=== PATIENT | female | born 1935 | race Hispanic/Latino ===

== ENCOUNTER → 2023-03-07 | Outpatient (CLI) | payer MEDICARE ==
[~2023-03-07] MED LIST: LIDOCAINE HCL 4% LTA SOL 4 ML VIAL ONE
== END | disposition home or self-care (01) ==
LOC: WHH 09:08
PROVIDERS: ATTEND Nurse Practitioner Family
DX: L97.312 Non-pressure chronic ulcer of right ankle with fat layer exposed (principal); S91.001A Unspecified open wound, right ankle, initial encounter; I87.2 Venous insufficiency (chronic) (peripheral); E78.2 Mixed hyperlipidemia; N18.9 Chronic kidney disease, unspecified; M81.0 Age-related osteoporosis without current pathological fracture; Z79.82 Long term (current) use of aspirin; Z79.899 Other long term (current) drug therapy; X58.XXXA Exposure to other specified factors, initial encounter; Y93.89 Activity, other specified; Y92.89 Other specified places as the place of occurrence of the external cause; Y99.8 Other external cause status
CPT/HCPCS: 11042; A4450

== ENCOUNTER → 2023-03-14 | Outpatient (CLI) | payer MEDICARE | END | disposition home or self-care (01) | LOC: WHH 09:48 | PROVIDERS: ATTEND Nurse Practitioner Family | DX: L97.312 Non-pressure chronic ulcer of right ankle with fat layer exposed (principal); S91.001D Unspecified open wound, right ankle, subsequent encounter; I87.2 Venous insufficiency (chronic) (peripheral); N18.2 Chronic kidney disease, stage 2 (mild); E78.2 Mixed hyperlipidemia; M81.0 Age-related osteoporosis without current pathological fracture; Z79.82 Long term (current) use of aspirin; Z79.899 Other long term (current) drug therapy; X58.XXXD Exposure to other specified factors, subsequent encounter | CPT/HCPCS: 11042; A6021 ==

== ENCOUNTER → 2023-04-04 | Outpatient (CLI) | payer MEDICARE | END | disposition home or self-care (01) | LOC: WHH 08:57 | PROVIDERS: ATTEND Nurse Practitioner Family | DX: L97.312 Non-pressure chronic ulcer of right ankle with fat layer exposed (principal); S91.001D Unspecified open wound, right ankle, subsequent encounter; I87.2 Venous insufficiency (chronic) (peripheral); E78.2 Mixed hyperlipidemia; N18.2 Chronic kidney disease, stage 2 (mild); M81.0 Age-related osteoporosis without current pathological fracture; Z79.82 Long term (current) use of aspirin; Z79.899 Other long term (current) drug therapy; X58.XXXD Exposure to other specified factors, subsequent encounter | CPT/HCPCS: G0463; A6021; A4450 ==

== ENCOUNTER → 2023-04-11 | Outpatient (CLI) | payer MEDICARE | END | disposition home or self-care (01) | LOC: WHH 09:00 | PROVIDERS: ATTEND Nurse Practitioner Family | DX: L97.312 Non-pressure chronic ulcer of right ankle with fat layer exposed (principal); S91.001D Unspecified open wound, right ankle, subsequent encounter; I87.2 Venous insufficiency (chronic) (peripheral); E78.2 Mixed hyperlipidemia; N18.2 Chronic kidney disease, stage 2 (mild); M81.0 Age-related osteoporosis without current pathological fracture; Z79.82 Long term (current) use of aspirin; Z79.899 Other long term (current) drug therapy; X58.XXXD Exposure to other specified factors, subsequent encounter | CPT/HCPCS: 11042; A6021 ==

== ENCOUNTER → 2023-04-20 | Outpatient (CLI) | payer MEDICARE | END | disposition home or self-care (01) | LOC: WHH 09:11 | PROVIDERS: ATTEND Nurse Practitioner Family | DX: L97.312 Non-pressure chronic ulcer of right ankle with fat layer exposed (principal); S91.001D Unspecified open wound, right ankle, subsequent encounter; I87.2 Venous insufficiency (chronic) (peripheral); E78.2 Mixed hyperlipidemia; N18.2 Chronic kidney disease, stage 2 (mild); M81.0 Age-related osteoporosis without current pathological fracture; Z79.82 Long term (current) use of aspirin; Z79.899 Other long term (current) drug therapy; X58.XXXD Exposure to other specified factors, subsequent encounter | CPT/HCPCS: G0463 ==

== ENCOUNTER → 2023-05-02 | Outpatient (CLI) | payer MEDICARE | END | disposition home or self-care (01) | LOC: WHH 09:14 | PROVIDERS: ATTEND Nurse Practitioner Family | DX: L97.312 Non-pressure chronic ulcer of right ankle with fat layer exposed (principal); S91.001D Unspecified open wound, right ankle, subsequent encounter; I87.2 Venous insufficiency (chronic) (peripheral); E78.2 Mixed hyperlipidemia; N18.2 Chronic kidney disease, stage 2 (mild); M81.0 Age-related osteoporosis without current pathological fracture; Z79.82 Long term (current) use of aspirin; Z79.899 Other long term (current) drug therapy; X58.XXXD Exposure to other specified factors, subsequent encounter | CPT/HCPCS: G0463 ==

== ENCOUNTER 2024-01-16 10:14 | Observation (INO) | payer MEDICARE ==
[~2024-01-16] VITALS: Ht 157.5 cm; Wt 61.2 kg
[~2024-01-16 10:14] MED LIST changes: +ACET-2079 PO; -LIDOCAINE HCL 4% LTA SOL 4 ML VIAL ONE
[2024-01-16 13:20] LABS: BASOPHILS # (AUTO) 0.03 K/uL (0.00-0.20); BASOPHILS % (AUTO) 0.4 % (0.0-5.0); EOSINOPHILS # (AUTO) 0.03 K/uL (0.00-0.70); EOSINOPHILS % (AUTO) 0.4 % (0.0-8.0); HEMATOCRIT 29.6 % (36-48); IMMATURE GRANULOCYTE ABSOLUTE 0.05 K/uL (0-1); LYMPHOCYTES # (AUTO) 1.3 K/uL (1.0-4.8); LYMPHOCYTES % (AUTO) 15.7 % (21.0-51.0); MEAN CORPUSCULAR HEMOGLOBIN 31.7 pg (27.0-33.0); MEAN CORPUSCULAR HGB CONC 33.8 g/dL (32.0-36.0); MONOCYTES # (AUTO) 0.7 K/uL (0.1-1.0); MONOCYTES % (AUTO) 8.7 % (3.0-13.0); NEUTROPHILS # (AUTO) 6.3 K/uL (1.8-7.7); NEUTROPHILS % (AUTO) 74.2 % (40.0-77.0); PLATELET COUNT (AUTO) 218 K/uL (130-400); RED BLOOD CELL COUNT(AUTO) 3.15 MIL/uL (4.00-5.50); WHITE BLOOD COUNT (AUTO) 8.4 K/uL (4.8-10.8)
[2024-01-16 13:25] LABS: INR <= 0.93 (0.85-1.15); PROTHROMBIN TIME 9.8 SEC (9.6-11.6)
[2024-01-16 13:27] LABS: PARTIAL THROMBOPLASTIN TIME 23.4 SEC (26.3-35.5)
[2024-01-16 13:29] LABS: CREATININE 0.5 mg/dL (0.5-1.0)
[2024-01-16] MEDS ORDERED: HYDROMORPHONE 0.5 MG SYG (0.5MG/0.5ML) IVP PRN (13:30)
[2024-01-16 13:39] LABS: ALBUMIN 3.2 g/dL (3.5-5.0); BILIRUBIN,TOTAL 0.6 mg/dL (0.2-1.0); TOTAL PROTEIN, SERUM 6.4 g/dL (6.0-8.3)
[2024-01-16] MEDS: HYDROCODONE/ACETAMINOPHEN 5/325 MG TAB PO ONE (14:29)
[2024-01-16 17:00] VITALS: O2SAT 96
[2024-01-16 19:38] VITALS: O2SAT 95
[2024-01-17] VITALS: BP 128/65; PULSE 83; RESP 19
[2024-01-17 04:00] VITALS: BP 128/61; PULSE 79; RESP 19
[2024-01-17 08:00] VITALS: BP 113/70; PULSE 99; RESP 18; O2SAT 98
== END 2024-01-17 08:37 | disposition home or self-care (01) ==
LOC: EDH 10:14 → EDHIP 13:23 → 4CH 16:41
PROVIDERS: ADMIT Internal Medicine; ATTEND Internal Medicine
DX: S42.292A Other displaced fracture of upper end of left humerus, initial encounter for closed fracture (principal); S40.022A Contusion of left upper arm, initial encounter; S20.212A Contusion of left front wall of thorax, initial encounter; I10 Essential (primary) hypertension; E78.00 Pure hypercholesterolemia, unspecified; Z90.49 Acquired absence of other specified parts of digestive tract; W01.0XXA Fall on same level from slipping, tripping and stumbling without subsequent striking against object, initial encounter; Y93.89 Activity, other specified; Y92.89 Other specified places as the place of occurrence of the external cause; Y99.8 Other external cause status
CPT/HCPCS: 99284; 80053; 85025; 85610; 85730; 36415; G0378 ×19

== ENCOUNTER 2024-01-29 09:35 | Observation (INO) | payer MEDICARE ==
[2024-01-25 10:51] LABS: BASOPHILS # (AUTO) 0.04 K/uL (0.00-0.20); BASOPHILS % (AUTO) 0.5 % (0.0-5.0); EOSINOPHILS # (AUTO) 0.11 K/uL (0.00-0.70); EOSINOPHILS % (AUTO) 1.4 % (0.0-8.0); LYMPHOCYTES # (AUTO) 1.1 K/uL (1.0-4.8); LYMPHOCYTES % (AUTO) 13.4 % (21.0-51.0); MEAN CORPUSCULAR HEMOGLOBIN 31.9 pg (27.0-33.0); MEAN CORPUSCULAR HGB CONC 31.9 g/dL (32.0-36.0); MONOCYTES # (AUTO) 0.8 K/uL (0.1-1.0); NEUTROPHILS # (AUTO) 5.8 K/uL (1.8-7.7); NEUTROPHILS % (AUTO) 73.4 % (40.0-77.0); PLATELET COUNT (AUTO) 352 K/uL (130-400); RED CELL DISTRIBUTION WIDTH 13.6 % (11.0-15.5); WHITE BLOOD COUNT (AUTO) 7.9 K/uL (4.8-10.8)
[2024-01-25 10:59] VITALS: BP 139/68; PULSE 67; RESP 18
[2024-01-25 11:01] LABS: ALBUMIN 3.5 g/dL (3.5-5.0)
[2024-01-25 11:24] LABS: APPEARANCE,URINE CLEAR (CLEAR); BILIRUBIN,URINE NEGATIVE (NEGATIVE); COLOR,URINE LIGHT-YELLOW (YELLOW); GLUCOSE, URINE (UA) NEGATIVE (NEGATIVE); KETONES,URINE NEGATIVE (NEGATIVE); LEUKOCYTE ESTERASE ,URINE 75 Leu/uL (NEGATIVE); NITRATE,URINE NEGATIVE (NEGATIVE); OCCULT BLOOD,URINE NEGATIVE (NEGATIVE); PROTEIN,URINE NEGATIVE (NEGATIVE); UROBILINOGEN,URINE 0.2 mg/dL (0.2-1.0)
[2024-01-25 11:35] LABS: ADD UA MICROSCOPIC YES
[2024-01-25 11:37] LABS: SQUAMOUS EPITHELIAL CELL,UR RARE /HPF (0-2); WBC,URINE 0-1 /HPF (0-1)
[2024-01-29] VITALS (33 sets, daily range): BP systolic 86–115; BP diastolic 34–64; PULSE 63–78; RESP 13–20; O2SAT 99
[~2024-01-29] VITALS: Ht 157.5 cm; Wt 53.3 kg
[~2024-01-29 09:35] MED LIST changes: +IBUP200C5 PO
[2024-01-29] MEDS ORDERED: ROCURONIUM BROMIDE 10MG/1ML 5ML VL ONE ×2 (09:49→11:41)
[2024-01-29] MEDS ORDERED: LIDOCAINE PF 100MG/5ML (2%) SYRINGE 5ML ONE (09:49)
[2024-01-29] MEDS ORDERED: PROPOFOL 10 MG/ML 20ML VIAL IV ONE (09:49)
[2024-01-29] MEDS ORDERED: FENTANYL CITRATE PF 50 MCG/1 ML 2ML VIAL ONE (09:50)
[2024-01-29] MEDS: CEFAZOLIN SODIUM 2 GM VIAL ONE (10:36)
[2024-01-29] MEDS ORDERED: DEXAMETHASONE SOD PHOSPHATE 10MG/ML 1ML VIAL ONE (10:37)
[2024-01-29] MEDS ORDERED: ONDANSETRON 4MG INJ ONE (10:37)
[2024-01-29] MEDS ORDERED: GLYCOPYRROLATE 0.2 MG/ML 5 ML VIAL ONE (10:52)
[2024-01-29] MEDS ORDERED: NEOSTIGMINE METHYLSULFATE 1MG/ML IV ONE (10:52)
[2024-01-29] MEDS ORDERED: TRANEXAMIC ACID 1000MG/10ML ONE (11:03)
[2024-01-29] MEDS ORDERED: EPHEDRINE SULFATE 50 MG/ML AMPULE ONE (11:18)
[2024-01-29] MEDS ORDERED: KCL 20 MEQ ERTAB PO PRN (13:00)
[2024-01-29] MEDS ORDERED: FE FUMARATE/FA/MV, MIN COMB#15 1 TAB PO PRN (13:00)
[2024-01-29] MEDS ORDERED: POTASSIUM CHLORIDE 10% ELIXIR 20 MEQ/15 ML UDCUP PO PRN (13:00)
[2024-01-29] MEDS ORDERED: CALCIUM CARB 500MG PO PRN (13:00)
[2024-01-29] MEDS ORDERED: POTASSIUM CHLORIDE 20MEQ/100ML 100 ML IV PRN (13:00)
[2024-01-29] MEDS ORDERED: ONDANSETRON 4MG INJ IVP PRN (13:00)
[2024-01-29] MEDS: KETOROLAC 15MG/ML VIAL (15MG/ML) ONE (13:21)
[2024-01-29] MEDS: LACTATED RINGERS 1000ML 1,000 ML IV ONE (17:33)
[2024-01-29] MEDS: ACETAMINOPHEN 1,000 MG/100 ML VIAL IV ONE (17:33)
[2024-01-29] MEDS: FAMOTIDINE 20MG VIAL IV ONE (17:34)
[2024-01-29] MEDS: KETOROLAC 15MG/ML VIAL (15MG/ML) IV SCH (17:34)
[2024-01-29] MEDS: 0.9%NACL 1000ML 1,000 ML IV SCH (17:35)
[2024-01-29] MEDS: CEFAZOLIN SODIUM 1 GM VIAL IVPB SCH (17:41)
[2024-01-29] MEDS: DOCUSATE SODIUM 100 MG CAP PO SCH (20:30)
[2024-01-30 03:38] VITALS: BP 112/53; PULSE 74; RESP 17
[2024-01-30 04:42] LABS: HEMATOCRIT 26.1 % (36-48); MEAN CORPUSCULAR HEMOGLOBIN 31.5 pg (27.0-33.0); MEAN CORPUSCULAR HGB CONC 32.6 g/dL (32.0-36.0); MEAN CORPUSCULAR VOLUME 96.7 fL (79-99); RED BLOOD CELL COUNT(AUTO) 2.7 MIL/uL (4.00-5.50); RED CELL DISTRIBUTION WIDTH 13.2 % (11.0-15.5); WHITE BLOOD COUNT (AUTO) 10.7 K/uL (4.8-10.8)
[2024-01-30 05:10] LABS: CREATININE 0.7 mg/dL (0.5-1.0)
[2024-01-30 08:00] VITALS: BP 133/66; PULSE 73; RESP 18; O2SAT 98
[2024-01-30] MEDS: POLYETHYLENE GLYCOL 3350 17 GM POWD.PACK PO SCH (08:30)
[2024-01-30] MEDS: ACETAMINOPHEN WITH CODEINE 1 TAB TAB PO PRN (09:34)
[2024-01-30] MEDS ORDERED: ACET-2079 PO (11:47)
[2024-01-30 12:00] VITALS: BP 106/61; PULSE 65; RESP 17
[2024-02-01] MEDS ORDERED: BISACODYL 10 MG SUPP.RECT RC PRN (13:00)
== END 2024-01-30 14:10 | disposition home health service (06) ==
LOC: DAH 09:35 → DAHIP 09:36 → DAH 09:36 → 4BH 16:45
PROVIDERS: ADMIT Student in an Organized Health Care Education/Training Program; ATTEND Student in an Organized Health Care Education/Training Program
DX: S42.212A Unspecified displaced fracture of surgical neck of left humerus, initial encounter for closed fracture (principal); S43.005A Unspecified dislocation of left shoulder joint, initial encounter; M19.012 Primary osteoarthritis, left shoulder; W18.39XA Other fall on same level, initial encounter; Y93.89 Activity, other specified; Y92.89 Other specified places as the place of occurrence of the external cause; Y99.8 Other external cause status; Z79.899 Other long term (current) drug therapy; Z98.890 Other specified postprocedural states
CPT/HCPCS: 82040; 85025; 87086; 84134; 86140; 81001; 36415 ×2; 87641; 96365; 96375; 93005; 64415; 23472; 73020 ×2; 97161; 97530 ×4; 96366; 80048; 85027; G0378 ×23; A4223 ×2; A4600; J7030; A4565; C1776; J7120; J3490 ×6; J3010; J0690 ×3; J1100; J2001; J2704; J2405; J2710; J1885 ×2; G0168; A4649; A6254; A5120; A4215; A4213; A4222; A4221; A4663; A4216

== ENCOUNTER 2025-04-10 16:57 | Emergency (ER) | payer MEDICARE ==
[~2025-04-10] VITALS: Ht 152.4 cm; Wt 53.7 kg
[~2025-04-10 16:57] MED LIST changes: -IBUP200C5 PO
[2025-04-10 17:45] VITALS: BP 150/80; PULSE 72; RESP 16; TEMP 99.3; O2SAT 98
--- NOTE | 2025-04-10 19:19 | ERN ---
General Chief Complaint: Hand Problem/Injury Stated Complaint: HAND INJURY Time Seen by MD: 17:42 Time Seen by Midlevel: 17:42 Source: patient History of Present Illness Initial Comments 89-year-old female presenting to the emergency department following a mechanical ground level fall. Patient reports falling with her outstretched hand. She has pain and swelling to her right wrist. Denies head injury or loss of consciousness. Denies being on any blood thinners Allergies: Coded Allergies: No Known Allergies (Unverified Allergy, Unknown, 01/14/24) Home Meds Active Scripts Acetaminophen with Codeine (Acetaminophen-Cod #3 Tablet) 300 Mg-30 Mg Tablet, 1 EACH PO Q4HPRN PRN for PAIN for 7 Days, #42 TAB 0 Refills Prov:OLIVIA PICHARDO MD 01/30/24 Past Medical History Past Medical History: No Pertinent History Medical History Other: denies pmhx Past Surgical History: None Female( History) History: Not Applicable ROS Dictation CONSTITUTIONAL: Negative except for HPI HEAD/FACE: Negative except for HPI EENT: Negative except for HPI RESPIRATORY: Negative except for HPI GASTROINTESTINAL/ABDOMINAL: Negative except for HPI GENITOURINARY: Negative except for HPI MUSCULOSKELETAL: Negative except for HPI INTEGUMENTARY: Negative except for HPI NEUROLOGICAL/PSYCH: Negative except for HPI HEMATOLOGIC/LYMPHATIC: Negative except for HPI All Systems Negative, Except as noted above. 13 point review of systems assessed and all negative except for above. Physical Exam Physical Exam Dictation PHYSICAL EXAM: GENERAL: alert,, awake oriented x 3 HEENT: EOMI, Sclera non icteric, moist mucosa NECK: Supple, no JVD, trachea midline LUNGS: Clear breath sounds bilaterally. No wheezes HEART: Regular rate and rhythm. Normal S1 and S2, without murmurs ABD: Abdomen soft, nontender. Bowel sounds present EXT: mild tenderness and swelling overlying the right distal radius. Radial pulses intact. There was normal capillary refill of less than 2 seconds to all five digits of the right hand. Patient has restricted range motion of the right wrist secondary to pain. NEURO: Alert and oriented to person, follows commands MDM MDM: 89-year-old female presenting to the emergency department following a mechanical ground level fall. Patient reports falling with her outstretched hand. She has pain and swelling to her right wrist. Denies head injury or loss of consciousness. Denies being on any blood thinners On physical examination the patient has a mild tenderness and swelling overlying the right distal radius. Radial pulses intact. There was normal capillary refill of less than 2 seconds to all five digits of the right hand. Patient has restricted range motion of the right wrist secondary to pain. X-ray reveals a closed nondisplaced fracture of the distal radius of the right wrist. An ulnar gutter splint was placed and the patient was referred outpatie nt to activity therapy specialist. The patient refused pain medication in the emergency department and was advised to take Tylenol and Motrin as needed at home. Differential diagnosis: Fracture, contusion, dislocation There are no social concerns with this patient. Prescription drug management Prescriptions will include: Medical management and examination interpretation discussions were had by me with other qualified healthcare professionals as indicated for the patient's care. ED Course Orders Procedure Category Date Status Time Hand 3+Vws Rt RAD 04/10/25 Resulted 17:52 *Nursing CPOE 04/10/25 Transmitted Communication: 19:18 Vital Signs Date Time Temp Pulse Resp B/P (MAP) Pulse Ox O2 Delivery O2 Flow Rate FiO2 04/10/25 17:45 99.3 72 16 150/80 98 Room Air* 0 21 04/10/25 17:04 98.1 87 16 145/71 97 Room Air* 0 21 04/10/25 17:00 98.1 87 16 145/71 97 Room Air 0 DX & DISP Disposition: Discharge Departure Impression: Primary Impression: Closed fracture of distal end of radius Condition: Stable Referrals: ORTIZ HUSSEIN MD (PCP) KISHAN SPAULDING MD I have reviewed the case, and I agree with, Diagnosis and Plan I performed the substantive portion of the visit. I have reviewed and personally made and approve the management plan that is documented in the note by myself or the NARCISO. I acknowledge for responsibility for the patient's management plan. ORTIZ RAMIREZ PAC Apr 10, 2025 19:19
--- NOTE | 2025-04-10 19:38 | HMCIMG ---
EXAM: CR right Hand, 3 View. CLINICAL HISTORY: r/o fx COMPARISON: None provided. FINDINGS: Nondisplaced intra-articular fracture of the distal radius. Suspected nondisplaced fracture of the tip of the ulnar styloid process. Joint spaces remain anatomically aligned. There is soft tissue edema at the wrist. Wrist joint effusion. IMPRESSION: 1. Nondisplaced intra-articular fracture of the distal radius and suspected nondisplaced fracture of the tip of the ulnar styloid process. 2. Wrist joint effusion with soft tissue edema. /Kamas
--- NOTE | 2025-04-10 19:39 | NUR ---
PER ER LICENSED DIRECT ENTRY MIDWIFE, SUGAR TONG SPLINT APPLIED TO RIGHT WRIST. PULSE AND CAPPILLARY REFILL ARE NORMAL. PATIENT AND SPOUSE EDUCATED ON SPLINT CARE. PATIENT AND SPOUSE VERBALIZED UNDERSTANDING.
== END 2025-04-10 19:48 | disposition home or self-care (01) ==
LOC: EDH 16:57
DX: S52.571A Other intraarticular fracture of lower end of right radius, initial encounter for closed fracture (principal); W18.30XA Fall on same level, unspecified, initial encounter; Y93.89 Activity, other specified; Y92.89 Other specified places as the place of occurrence of the external cause; Y99.8 Other external cause status
CPT/HCPCS: 29125; 73130; 99284